=== PATIENT | male | born 1995 | race Caucasian/White ===

== ENCOUNTER 2018-09-17 05:14 | Emergency (ER) | payer BC ==
[2018-09-17] MEDS ORDERED: HYDROmorphone 0.5 MG/0.5 ML Syringe IVPUSH ONE (05:38)
[2018-09-17] MEDS ORDERED: Sodium Chloride 0.9% 10 ML Syringe FLUSH PRN (05:38)
[2018-09-17] MEDS ORDERED: Famotidine 20 MG/2 ML SDV IVPUSH ONE (05:38)
[2018-09-17] MEDS ORDERED: Ondansetron 4 MG/2 ML SDV IVPUSH ONE (05:38)
[2018-09-17] MEDS ORDERED: Ketorolac 30 MG/ML SDV IVPUSH SCH (05:45)
[2018-09-17] MEDS ORDERED: Sodium Chloride 0.9% 1,000 ML IV SCH (05:45)
--- NOTE | 2018-09-17 05:50 | EDM.PDOC ---
ED HPI GENERAL MEDICAL PROBLEM - General Chief Complaint: Abdominal Pain Stated Complaint: abdominal pain Time Seen by Provider: 09/17/18 05:31 Source of Information: Reports: Patient, RN Notes Reviewed - History of Present Illness INITIAL COMMENTS - FREE TEXT/NARRATIVE: 23-year-old male comes in with abdominal pain, nausea vomiting and diarrhea. This awakened him from sleep about 2 hours ago. He been feeling fine all day yesterday and last evening. He has not been around anyone ill that he is aware of. No fever chills, chest pain or difficulty breathing. Abdominal Pain Score (Numeric/FACES): 6 - Related Data Allergies Allergy/AdvReac Type Severity Reaction Status Date / Time tree nut Allergy Airway Verified 09/17/18 05:25 Tightness Home Meds: Home Meds Ciprofloxacin HCl [Cipro] 500 mg PO BID #10 tablet 09/17/18 [Rx] Escitalopram [Lexapro] 20 mg PO DAILY 09/17/18 [History] Ondansetron [Zofran ODT] 4 mg PO Q8HR PRN #4 tab.dis 09/17/18 [Rx] Past Medical History - Past Health History Medical/Surgical History: Denies Medical/Surgical History Social & Family History - Tobacco Use Smoking Status *Q: Current Every Day Smoker Years of Tobacco use: 3 Packs/Tins Daily: 1 - Recreational Drug Use Recreational Drug Use: No ED ROS GENERAL - Review of Systems Review Of Systems: See Below Constitutional: Denies: Fever, Chills, Diaphoresis HEENT: Reports: No Symptoms Respiratory: Denies: Shortness of Breath Cardiovascular: Denies: Chest Pain GI/Abdominal: Reports: Abdominal Pain, Diarrhea, Nausea, Vomiting Musculoskeletal: Reports: No Symptoms Skin: Reports: No Symptoms Neurological: Reports: Dizziness ED EXAM, GI/ABD - Physical Exam Exam: See Below General Appearance: Alert, Moderate Distress Throat/Mouth: Normal Inspection, Normal Oropharynx Head: No: Facial Swelling Neck: Supple, Full Range of Motion Respiratory/Chest: No Respiratory Distress, Lungs Clear, Normal Breath Sounds Cardiovascular: Regular Rate, Rhythm GI/Abdominal Exam: Tender (Moderate diffuse tenderness upper and mid abdomen, moderate diffuse tenderness lower abdomen as well.). No: Guarding, Rebound Back Exam: No: CVA Tenderness (L), CVA Tenderness (R) Neurological: Alert, Oriented, No Motor/Sensory Deficits Skin Exam: Warm, Dry, Normal Color Course - Vital Signs Last Recorded V/S: Last Vital Signs Temp 96.7 F 09/17/18 05:23 Pulse 86 09/17/18 05:23 Resp 16 09/17/18 05:23 BP 134/84 09/17/18 05:23 Pulse Ox 100 09/17/18 05:23 - Orders/Labs/Meds Orders: Active Orders 24 hr Category Date Time Status Peripheral IV Care [RC] . DIRECTED Care 09/17/18 05:38 Active Peripheral IV Insertion Adult [OM.PC] Stat Oth 09/17/18 05:38 Ordered Labs: Laboratory Tests 09/17/18 09/17/18 Range/Units 05:30 05:30 WBC 12.86 H (4.23-9.07) K/mm3 RBC 4.65 (4.63-6.08) M/mm3 Hgb 15.1 (13.7-17.5) gm/L Hct 43.2 (40.1-51.0) % MCV 92.9 H (79.0-92.2) fl MCH 32.5 H (25.7-32.2) pg MCHC 35.0 (32.2-35.5) g/dl RDW Std Deviation 41.9 (35.1-43.9) fL Plt Count 314 (163-337) K/mm3 MPV 10.6 (9.4-12.3) fl Neut % (Auto) 69.2 H (34.0-67.9) % Lymph % (Auto) 19.3 L (21.8-53.1) % [place] % (Auto) 7.2 (5.3-12.2) % Eos % (Auto) 3.4 (0.8-7.0) Baso % (Auto) 0.5 (0.1-1.2) % Neut # (Auto) 8.90 H (1.78-5.38) K/mm3 Lymph # (Auto) 2.48 (1.32-3.57) K/mm3 [place] # (Auto) 0.92 H (0.30-0.82) K/mm3 Eos # (Auto) 0.44 (0.04-0.54) K/mm3 Baso # (Auto) 0.07 (0.01-0.08) K/mm3 Sodium 140 (136-145) mEq/L Potassium 3.6 (3.5-5.1) mEq/L Chloride 101 (98-107) mEq/L Carbon Dioxide 25 (21-32) mEq/L Anion Gap 17.6 H (5-15) BUN 21 H (7-18) mg/dL Creatinine 0.9 (0.7-1.3) mg/dL Est Cr Clr Drug Dosing 146.16 mL/min Estimated GFR (MDRD) > 60 (>60) mL/min BUN/Creatinine Ratio 23.3 H (14-18) Glucose 105 (74-106) mg/dL Calcium 9.3 (8.5-10.1) mg/dL Total Bilirubin 0.4 (0.2-1.0) mg/dL AST 32 (15-37) U/L ALT 33 (16-63) U/L Alkaline Phosphatase 32 L (46-116) U/L Total Protein 7.9 (6.4-8.2) g/dl Albumin 4.4 (3.4-5.0) g/dl Globulin 3.5 gm/dL Albumin/Globulin Ratio 1.3 (1-2) Meds: Medications Discontinued Medications Generic Name Dose Route Start Last Admin Trade Name Freq PRN Reason Stop Dose Admin Famotidine 20 mg 09/17/18 05:38 09/17/18 05:52 Pepcid IVPUSH 09/17/18 05:39 20 mg ONETIME ONE Administration Hydromorphone HCl 0.5 mg 09/17/18 05:38 09/17/18 05:54 Dilaudid IVPUSH 09/17/18 05:39 0.5 mg ONETIME ONE Administration Sodium Chloride 1,000 mls @ 999 mls/hr 09/17/18 05:45 09/17/18 05:48 Normal Saline IV 999 mls/hr ONETIME URSZULA Administration Ketorolac Tromethamine 30 mg 09/17/18 05:45 09/17/18 05:50 Toradol IVPUSH 30 mg ONETIME URSZULA Administration Ondansetron HCl 4 mg 09/17/18 05:38 09/17/18 05:49 Zofran IVPUSH 09/17/18 05:39 4 mg ONETIME ONE Administration Sodium Chloride 10 ml 09/17/18 05:38 09/17/18 05:54 Saline Flush FLUSH 10 ml ASDIRECTED PRN Administration Keep Vein Open - Re-Assessments/Exams Free Text/Narrative Re-Assessment/Exam: 09/17/18 06:19 Patient is feeling better after IV fluid, IV Zofran and Toradol Dilaudid and Pepcid. He continues to have somewhat frequent diarrhea. States that he did eat some hamburger last evening that was "old" so this could be a food poisoning. I will start him on Cipro 500 mg twice a day. Discharge instructions as documented. Departure - Departure Time of Disposition: 06:40 Disposition: Home, Self-Care 01 Condition: Fair Clinical Impression: Abdominal pain Qualifiers: Abdominal location: generalized Qualified Code(s): R10.84 - Generalized abdominal pain Diarrhea Qualifiers: Diarrhea type: unspecified type Qualified Code(s): R19.7 - Diarrhea, unspecified Vomiting Qualifiers: Vomiting type: unspecified Vomiting Intractability: non-intractable - Discharge Information Prescriptions: Ondansetron [Zofran ODT] 4 mg PO Q8HR PRN #4 tab.dis PRN Reason: Nausea/Vomiting Ciprofloxacin HCl [Cipro] 500 mg PO BID #10 tablet Instructions: Diarrhea, Adult, Abdominal Pain, Adult, [id number], Vomiting, Adult Referrals: PCP,None [Primary Care Provider] - Forms: ED Department Discharge Additional Instructions: Clear liquids until this evening, then very careful bland diet as tolerated. Cipro 500 mg twice daily for 5 days, start that this morning. Zofran 1 tablet every 8 hours if needed for further severe nausea or vomiting. Follow-up clinic if not back to normal within 2 days as expected, return to ED as needed if symptoms worsening in any way. - My Orders Last 24 Hours: My Active Orders 09/17/18 05:38 Peripheral IV Care [RC] . DIRECTED Peripheral IV Insertion Adult [OM.PC] Stat - Assessment/Plan Last 24 Hours: My Active Orders 09/17/18 05:38 Peripheral IV Care [RC] . DIRECTED Peripheral IV Insertion Adult [OM.PC] Stat
== END 2018-09-17 07:00 | disposition home or self-care (01) ==
LOC: JD.ED 05:14
DX: R10.84 Generalized abdominal pain (principal); R19.7 Diarrhea, unspecified; F17.210 Nicotine dependence, cigarettes, uncomplicated; Z79.899 Other long term (current) drug therapy
CPT/HCPCS: 36415; 80053; 85025; 96361; 96374; 96375; 99284; J1170; J1885; J2405; J3490; J7040